=== PATIENT | female | born 1985 | race African-American/Black ===

== ENCOUNTER 2016-08-31 06:21 | Day surgery (SDC) | payer SELFPAY ==
[2016-08-20 13:00] VITALS: BMI 26.0
[2016-08-31] MEDS ORDERED: HEPARIN NA (PORCINE) 5,000 UNITS/ML 1ML VIAL ONE (07:07)
[2016-08-31] MEDS ORDERED: BUPIVACAINE HCL/PF 2.5 MG/ML - 30 ML VIAL IJ ONE (07:30)
[2016-08-31] MEDS ORDERED: LIDOCAINE HCL 1%, 10 MG/ML (20ML VIAL) ONE (07:30)
[2016-08-31] MEDS ORDERED: EPINEPHrine/PF 1 MG/1 ML (1:1,000) AMPULE ONE (07:31)
[2016-08-31] MEDS ORDERED: BACITRACIN 30 GM TUBE TOPICAL OINTMENT ONE (07:31)
[2016-08-31] MEDS ORDERED: PROPOFOL 20 ML ONE ×2 (07:58)
[2016-08-31] MEDS ORDERED: DEXAMETHASONE SOD PHOSPHATE 4 MG/1 ML VIAL ONE (07:59)
[2016-08-31] MEDS ORDERED: LIDOCAINE HCL/PF 2% SDV 5ML VIAL ONE (07:59)
[2016-08-31] MEDS ORDERED: MIDAZOLAM HCL 2 MG/2 ML SINGLE DOSE VIAL ONE (08:00)
[2016-08-31] MEDS ORDERED: SUCCINYLCHOLINE CHLORIDE 200 MG/10 ML VIAL ONE (08:04)
[2016-08-31] MEDS ORDERED: ceFAZolin SODIUM 1 GM VIAL ONE (08:30)
[2016-08-31] MEDS ORDERED: ONDANSETRON 4 MG/2 ML VIAL ONE (08:33)
[2016-08-31] MEDS ORDERED: ePHEDrine SULFATE 50 MG/1 ML AMPULE ONE (08:55)
[2016-08-31] MEDS ORDERED: HYDROmorphone HCL/PF 1 MG/ML VIAL (FOR PYXIS CHARGING ONLY) ONE (09:37)
[2016-08-31] MEDS ORDERED: NEOSTIGMINE METHYLSULFATE 0.5 MG/ML - 10 ML MDV ONE (09:43)
[2016-08-31] MEDS ORDERED: morphine CARPU-JECT 2 MG/1 ML DISP.SYRIN IVPUSH PRN (12:25)
[2016-08-31] MEDS ORDERED: ONDANSETRON 4 MG/2 ML VIAL IVPB PRN (12:25)
[2016-08-31] MEDS ORDERED: LACTATED RINGERS SOLUTION 1,000 ML IV SCH (12:30)
--- NOTE | 2016-08-31 13:52 | OP ---
DATE OF OPERATION: 08/31/2016 PROCEDURE: Abdominoplasty with bilateral flank liposuction. PREOPERATIVE DIAGNOSIS: Abdominal lipodystrophy. POSTOPERATIVE DIAGNOSIS: Abdominal lipodystrophy. ATTENDING SURGEON: Corey Lewis MD ASSISTANTS: None. ANESTHESIA: General endotracheal anesthesia. The patient additionally received, prior to final closure, 14 mL 0.25% Marcaine plain injected into the lateral fascia. DESCRIPTION OF PROCEDURE: The patient was marked in the holding area awake and aware of all incisions and resulting scars. She is counseled on the need to remove a skin piercing, which she did on her own and was verified by the nursing staff prior to surgery. The patient had been given 5000 units of subcutaneous heparin preoperatively. She is given Chucho hose and sequential compression stockings. She is then brought to the operating room and placed in a supine position. Position is carefully checked by surgical and anesthesia teams. She is given a gram of Ancef. She is prepped and draped in the standard surgical fashion after which a time-out is called. Patient, procedure, sites, sides are verified. At this point, incision is made along the inferior border of the resection panel, which is along the infrapannicular crease. The dissection is then carried down to the level of the abdominal wall fascia. Dissection is then carried along the abdominal wall fascia with clamp ligation of all perforating blood vessels, which are identified along the path of dissection. Dissection carried to the level of the umbilicus, which is now circumcised on the fibrofatty stalk, and it is dissected down to the level of the abdominal wall fascia. The continuation of the abdominoplasty flap is evaluated to the xiphoid process in the midline costal margins bilaterally. Hemostasis is meticulously achieved. A midline plication is then performed in 2 layers, the first layer being a series of interrupted, buried [id number] 1 Prolene sutures followed by a running, locking 0 Prolene suture. There are 2 lines of each of these double-layered closures, one superior to the umbilicus and another one inferior to the umbilicus. Hemostasis is then once again achieved. The wound was copiously irrigated with normal saline, and the patient was then brought to a 25-degree flexed position where the abdominoplasty flap is translocated and excess is marked for resection. The excess skin and fat are resected, and hemostasis is achieved once again. The skin is then tailor tacked, and a making is made for the translocation site of the umbilicus. The new umbilicus was then incised on the abdominoplasty flap in a Star Trek pattern with an inferior 6 o'clock triangular flap. A similar pattern is then created on the preserved umbilicus. It should be noted the patient had an umbilical hernia preoperatively, and it was discussed with the patient that the umbilical hernia would not be repaired during this operation but could be repaired afterwards at a separate sighting at least 1 year later. The umbilicus was then translocated through the abdominal wall defect. The 6 o'clock position flap is inset into the 6 o'clock notch on the umbilicus. The inset is performed with a series of interrupted, buried dermal 3-0 Monocryl suture followed by a series of interrupted 5-0 nylon sutures at each of the apices and a running 5-0 nylon suture along the straight lines. A size 10 flat J-P drain is brought out through the lateral sides of the incisions. The incision on the right exits a drain that is in the superior portion of the wound, and the J-P drain on the left is lying through the inferior portion of the wound. The drains are secured with 2-0 silk drain sutures. With the patient in the flexed position and the skin tailor tacked, the superficial fascial system, Sarah layer fascia was closed with a series of interrupted buried 2-0 Vicryl sutures. At this point, wetting solution is infiltrated into the bilateral flanks. A total of 500 mL is infiltrated into each flank, and a full 15 minutes is awaited for hemostatic effect of the wetting solution. The wetting solution in this case is a liter of normal saline with 20 mL of 1% lidocaine plain and 1 ampule of 1:1000 epinephrine. While the effect of the wetting solution is working, the deep dermal buried sutures were then placed with a series of interrupted buried deep dermal 3-0 Monocryl suture along the length of the incision. Liposuction is then performed using a power-assisted Microaire system 4-mm cannula. The endpoint of the liposuction is smooth, even, symmetric contour and the appearance of blood in the lipoaspirate. The total lipoaspirate is 225 mL per side. At this point, it should be noted that prior to final closure a total of 14 mL of 0.25% Marcaine plain had been injected into the abdominal wall fascia, and the final closure is then performed with a running subcuticular 3-0 Monocryl suture. The wounds were dressed with Steri-Strips, Xeroform in the umbilicus, full length 1/2-inch Steri-Strips along the abdominoplasty incision. The patient is dressed with ABD gauze, 4x4 gauze, Hypafix tape, and abdominal binder. She is awoken from anesthesia without complication, transferred to recovery without complication. Drains were placed to bulb suction. COREY LEWIS M.D. [id number]
[2016-08-31] MEDS: oxyCODONE HCL 5 MG TABLET PO PRN (20:52)
[2016-09-01] MEDS: oxyCODONE HCL 5 MG TABLET PO PRN ×2 (01:15→08:45)
[2016-09-01 06:19] VITALS: BP 125/80; PULSE 71; TEMP 99.2
--- NOTE | 2016-09-01 07:26 | PN ---
Progress Note (short form) - Note Progress Note: VSS AF all tissues viable no collections FAZAL thin OK for discharge
[2016-09-01] MEDS ORDERED: HEPARIN NA (PORCINE) 5,000 UNITS/ML 1ML VIAL SQ ONE (08:05)
[2016-09-01] MEDS ORDERED: CEFAZOLIN 1 GM/D5W 50 ML IVPB SCH (09:00)
--- NOTE | 2016-09-09 11:18 | PATH ---
Surgical Pathology Report Patient Name: ROBERT CARLTON [facility]. Rec. #: [id number] /Age/Gender: 1985 (Age: 30) / F Account: [id number] Location: [facility] AMBULATORY Taken: 08/31/2016 Received: 08/31/2016 Reported: 09/03/2016 Physicians: Corey Avalos Specimen(s) Received ABDOMINAL SKIN AND TISSUE Clinical History Cosmetic Final Diagnosis ABDOMINAL SKIN AND TISSUE, ABDOMINOPLASTY: SKIN AND ADIPOSE TISSUE, DESCRIBED (GROSS EXAMINATION ONLY). Electronically Signed Martina Cohn M.D. Gross Description Received in formalin labeled "abdominal skin and tissue," is a 608 g aggregate of 2 brown, triangular portions of skin with underlying soft tissue, measuring 27.0 x 16.5 x 2.5 cm in aggregate. The epidermal surfaces are unremarkable. Sectioning reveals unremarkable yellow, lobulated fat. No lesions are identified. No sections are submitted, gross only. /09/01/2016 saudi/09/01/2016
== END 2016-09-01 10:59 | disposition home or self-care (01) ==
LOC: FASU 06:21 → FM/S 12:25 → FASU 09-01 10:59
PROVIDERS: ATTEND Plastic Surgery
PROC: 0J083ZZ Alteration of Abdomen Subcutaneous Tissue and Fascia, Percutaneous Approach (ICD-10-PCS; 2016-08-31)
PROC: 0J080ZZ Alteration of Abdomen Subcutaneous Tissue and Fascia, Open Approach (ICD-10-PCS; principal; 2016-08-31 08:42)
DX: Z41.1 Encounter for cosmetic surgery (principal)
CPT/HCPCS: 84703; 88300-TC; 94010; 94760; J1644